=== PATIENT | male | born 1995 | race African-American/Black ===

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

== ENCOUNTER 2017-06-26 09:11 | Emergency (ER) | payer MEDICAID ==
[~2017-06-26] VITALS: Ht 180.3 cm; Wt 65.0 kg
[2017-06-26 09:52] VITALS: BP 125/94
== END 2017-06-26 10:46 | disposition home or self-care (01) ==
LOC: ER 10:15
DX: H53.2 Diplopia (principal); H00.019 Hordeolum externum unspecified eye, unspecified eyelid; J45.909 Unspecified asthma, uncomplicated
CPT/HCPCS: 99283

== ENCOUNTER 2017-09-12 12:27 | Emergency (ER) | payer MEDICAID ==
[~2017-09-12] VITALS: Ht 182.9 cm; Wt 67.0 kg
[2017-09-12 15:24] VITALS: BP 116/79
== END 2017-09-12 15:26 | disposition home or self-care (01) ==
LOC: ER 12:52
DX: H00.012 Hordeolum externum right lower eyelid (principal); H00.014 Hordeolum externum left upper eyelid; J45.909 Unspecified asthma, uncomplicated
CPT/HCPCS: 99283

== ENCOUNTER 2017-09-20 09:49 | Emergency (ER) | payer MEDICAID ==
[~2017-09-20] VITALS: Ht 182.9 cm; Wt 66.0 kg
[2017-09-20 10:00] VITALS: BP 127/76
== END 2017-09-20 13:13 | disposition home or self-care (01) ==
LOC: ER 09:49
DX: H00.025 Hordeolum internum left lower eyelid (principal); H00.021 Hordeolum internum right upper eyelid; J45.909 Unspecified asthma, uncomplicated
CPT/HCPCS: 99283